=== PATIENT | male | born 1940 | race Caucasian/White ===

== ENCOUNTER 2017-04-28 21:47 | Outpatient (CLI) | payer MEDICARE | END 2017-04-28 21:48 | disposition home or self-care (01) | LOC: MADLAB 21:47 | PROVIDERS: ATTEND General Practice | DX: C61 Malignant neoplasm of prostate (principal) | CPT/HCPCS: G0103 ==

== ENCOUNTER 2017-05-25 17:53 | Outpatient (CLI) | payer MEDICARE | END 2017-05-25 17:54 | disposition home or self-care (01) | LOC: MADLAB 17:53 | PROVIDERS: ATTEND General Practice | DX: N39.0 Urinary tract infection, site not specified (principal) | CPT/HCPCS: 87077; 87086; 87186 ==

== ENCOUNTER 2018-03-04 20:00 | Emergency (ER) | payer MEDICARE ==
--- NOTE | 2018-03-04 20:52 | RAD ---
PORTABLE UPRIGHT FRONTAL CHEST RADIOGRAPH: 03/04/2018 HISTORY: Dyspnea. COMPARISON: None. FINDINGS: There is elevation of the right hemidiaphragm. There is no pneumothorax or pleural fluid. No focal consolidation or alveolar edema. There is mild perihilar interstitial prominence. IMPRESSION: No acute findings. POS: [facility]
[2018-03-04 21:20] LABS: Bilirubin Negative (Negative); Blood, Urine Large (Negative); Clarity Turbid (Clear); Glucose, Urine (Dipstick) 250 mg/dL (Negative); Leukocyte Large (Negative); Nitrite Negative (Negative); Protein, Urine (Dipstick) 100 mg/dL (Neg-Trace)
[2018-03-04 21:24] LABS: ALT (SGPT) 128 U/L (8-55); AST (SGOT) 55 U/L (5-34); Albumin 3.2 g/dL (3.4-4.8); Alkaline Phosphatase 208 U/L (40-150); Anion Gap 16 mmol/L (10-20); BUN (Urea Nitrogen) 32 mg/dL (8.4-25.7); Bilirubin, Total 1.4 mg/dL (0.2-1.2); Calc. Creatinine Clearance 0 mL/min (70-130); Calcium 8.1 mg/dL (7.8-10.44); Carbon Dioxide 28 mmol/L (23-31); Chloride 88 mmol/L (98-107); Estimated GFR-MDRD 58; Globulin 3.1 g/dL (2.4-3.5); Glucose 315 mg/dL (83-110); Magnesium 1.6 mg/dL (1.6-2.6); Potassium 3.4 mmol/L (3.5-5.1); Protein, Total 6.3 g/dL (5.8-8.1); Sodium 129 mmol/L (136-145)
[2018-03-04 21:30] LABS: Bacteria/HPF 4+ HPF (None Seen); RBC/HPF GREATER THAN 50-TNTC HPF (0-3)
[2018-03-04 21:31] LABS: CKMB 2.8 ng/mL (0-6.6); Hemoglobin 14.1 g/dL (14.0-18.0); Mean Corpuscular HGB CONC 32.5 g/dL (32.0-36.0); Mean Corpuscular Hemoglobin 24.9 pg (27.0-31.0); Mean Corpuscular Volume 76.6 fl (80.0-94.0); Mean Platelet Volume 12.2 fL (7.4-10.4); Platelet Count 108 thou/uL (130-400); RBC Distribution Width 14.9 % (11.5-14.5); Red Blood Cell (RBC) Count 5.68 mill/uL (4.70-6.10); Troponin I 0.059 ng/mL (< 0.028); White Blood Cell (WBC) Count 8.9 thou/uL (4.8-10.8)
[2018-03-04 21:34] LABS: MDiff Complete? YES
[2018-03-04 21:35] LABS: Anisocytosis MARKED = >30 cells (100X) (0-5/hpf); Band 10 % (5-11); Delete Auto Diff?? YES; Lymphocytes 12 % (21-51); Metamyelocyte 2 % (0-0); Microcytosis MARKED = >30 cells (100X) (0-5/hpf); Monocytes 2 % (0-10); Neutrophil 74 % (42-75)
[2018-03-04] MEDS ORDERED: Furosemide 20 MG/2 ML VIAL ONE (21:38)
== END 2018-03-04 21:55 | disposition short-term general hospital (02) ==
LOC: MADERS 20:00
DX: E87.70 Fluid overload, unspecified (principal); R09.02 Hypoxemia; I10 Essential (primary) hypertension; Z87.891 Personal history of nicotine dependence
CPT/HCPCS: 36415; 71045; 80053; 81003; 81015; 82553; 83735; 83880; 84443; 84484; 85025; 93005; 94760; 96374; J1940

== ENCOUNTER 2018-12-15 00:51 | Emergency (ER) | payer MEDICARE | END 2018-12-15 02:23 | disposition home or self-care (01) | LOC: MADERS 00:51 | DX: Z46.6 Encounter for fitting and adjustment of urinary device (principal); I10 Essential (primary) hypertension; Z87.891 Personal history of nicotine dependence | CPT/HCPCS: 51705 ==

== ENCOUNTER 2019-03-24 20:21 | Emergency (ER) | payer MEDICARE | END 2019-03-24 21:08 | disposition short-term general hospital (02) | LOC: MADERS 20:21 | DX: T83.198A Other mechanical complication of other urinary devices and implants, initial encounter (principal) | CPT/HCPCS: 99284 ==

== ENCOUNTER 2020-01-08 10:16 | Inpatient (IN) | payer MEDICARE ==
[2020-01-08 14:17] VITALS: BMI 36.6
[2020-01-08] MEDS ORDERED: Ondansetron ODT 4 MG TAB PO PRN (14:57)
[2020-01-08] MEDS ORDERED: Acetaminophen 325 MG TAB PO PRN (14:57)
[2020-01-08] MEDS ORDERED: Ascorbic Acid 500 mg Chewable Tablet PO PRN (14:59)
[2020-01-08] MEDS ORDERED: Zinc Gluconate 50 MG TAB PO PRN (15:13)
[2020-01-08] MEDS ORDERED: VIT C PO PRN (15:15)
[2020-01-08] MEDS ORDERED: Floranex Packet PO PRN (15:15)
[2020-01-08] MEDS ORDERED: CRANBERRY FRUIT EXTRACT PO PRN (15:15)
[2020-01-08 15:47] LABS: Bilirubin Negative (Negative); Blood, Urine Moderate (Negative); Clarity Slightly Cloudy (Clear); Glucose, Urine (Dipstick) Negative (Negative); Leukocyte Moderate (Negative); Nitrite Negative (Negative); Protein, Urine (Dipstick) Negative (Neg-Trace); Urobilinogen 0.2 mg/dL (Less than 2)
[2020-01-08] MEDS: Cefepime 1 GM in Sodium Chloride 0.9% 100 ML IVPB SCH (15:48)
[2020-01-08 15:51] LABS: ALT (SGPT) 306 U/L (8-55); AST (SGOT) 177 U/L (5-34); Albumin 3.7 g/dL (3.4-4.8); Alkaline Phosphatase 309 U/L (40-110); Anion Gap 13 mmol/L (10-20); BUN (Urea Nitrogen) 8 mg/dL (8.4-25.7); Bilirubin, Total 1.8 mg/dL (0.2-1.2); Calc. Creatinine Clearance 130 mL/min (70-130); Calcium 8.8 mg/dL (7.8-10.44); Carbon Dioxide 31 mmol/L (23-31); Chloride 100 mmol/L (98-107); Estimated GFR-MDRD Greater than 90; Globulin 3.6 g/dL (2.4-3.5); Glucose 170 mg/dL (83-110); Potassium 3.6 mmol/L (3.5-5.1); Protein, Total 7.3 g/dL (5.8-8.1); Sodium 140 mmol/L (136-145)
[2020-01-08 15:55] LABS: RBC/HPF Greater than 50 HPF (0-3); Squamous Epithelial None Seen HPF (0-3); WBC/HPF Greater Than 50 HPF (0-3)
[2020-01-08 15:56] LABS: Bacteria/HPF 4+ HPF (None Seen)
[2020-01-08 16:17] LABS: #Basophils 0.1 thou/uL (0.0-0.2); #Eosinphils 0.3 thou/uL (0.0-0.7); #Lymphocytes 1.4 thou/uL (1.20-3.40); #Monocytes 0.6 thou/uL (0.11-0.59); #Neutrophils 3.8 thou/uL (1.40-6.50); %Eosinophils 5.1 % (0.0-10.0); %Lymphocytes 23.4 % (21.0-51.0); %Monocytes 9.6 % (0.0-10.0); %Neutrophils 60.9 % (42.0-75.0); Anisocytosis SLIGHT = 6-15 cells (100X) (0-5/hpf); Hemoglobin 13.6 g/dL (14.0-18.0); Hypochromia MODERATE=16-30 cells (100X) (0-5/hpf); MDiff Complete? YES; Mean Corpuscular HGB CONC 29.8 g/dL (32.0-36.0); Mean Corpuscular Hemoglobin 24.9 pg (27.0-31.0); Mean Corpuscular Volume 83.6 fL (78.0-98.0); Platelet Count 140 thou/uL (130-400); Platelet Morphology Comment Appears Adequate; RBC Distribution Width 14.6 % (11.5-14.5); Red Blood Cell (RBC) Count 5.46 mill/uL (4.70-6.10); White Blood Cell (WBC) Count 6.2 thou/uL (4.8-10.8)
[2020-01-08] MEDS: Potassium Chloride 20 MEQ TAB PO SCH (16:56)
[2020-01-08] MEDS: Furosemide 40 MG TAB PO SCH (20:38)
[2020-01-08] MEDS: Oxybutynin 5 MG TAB PO SCH (20:38)
[2020-01-08] MEDS ORDERED: Cefepime 1 GM in Sodium Chloride 0.9% 100 ML IVPB SCH (21:00)
[2020-01-09] MEDS: Cefepime 1 GM in Sodium Chloride 0.9% 100 ML IVPB SCH ×2 (03:55→16:05)
[2020-01-09 05:47] LABS: ALT (SGPT) 255 U/L (8-55); AST (SGOT) 132 U/L (5-34); Albumin 3.6 g/dL (3.4-4.8); Alkaline Phosphatase 285 U/L (40-110); Anion Gap 14 mmol/L (10-20); BUN (Urea Nitrogen) 9 mg/dL (8.4-25.7); Bilirubin, Total 1.3 mg/dL (0.2-1.2); Calc. Creatinine Clearance 164 mL/min (70-130); Calcium 8.7 mg/dL (7.8-10.44); Carbon Dioxide 30 mmol/L (23-31); Chloride 101 mmol/L (98-107); Estimated GFR-MDRD Greater than 90; Globulin 3.5 g/dL (2.4-3.5); Glucose 101 mg/dL (83-110); Potassium 3.4 mmol/L (3.5-5.1); Protein, Total 7.1 g/dL (5.8-8.1); Sodium 142 mmol/L (136-145)
--- NOTE | 2020-01-09 06:58 | HP ---
PRIMARY CARE PHYSICIAN: Maura Azar MD CHIEF COMPLAINT: Multi-drug resistant urinary tract infection and worsening weakness. HISTORY OF PRESENT ILLNESS: Mr. Carreon is a 79-year-old male with medical history of quadriplegia due to a C-spine injury about 12 years ago where the patient fell and broke his C-spine and had to have surgery, since then, the patient is being wheelchair bound. The patient does have a history of prostate cancer, requiring radiation therapy and resulted in chronic indwelling suprapubic catheter. He has a history of diabetes and hypertension, and he is chronically cared for by his , his daughter and home health. The patient states he was in his home; and noted he was progressively getting weaker than normal, and home health nurse noted pus in catheter and very dark urine in his Rush catheter. UA was done on and culture which came back positive for Pseudomonas aeruginosa and susceptibility only IV. The patient denies any fever. He denies any nausea or vomiting. He just noted he was weaker than normal. The urine culture showed no oral antibiotic could be used to treat the current infection. [facility] noted due to the current pandemic of COVID-19, they could not go in for daily IV antibiotic administration. So, the decision was made to admit the patient in the hospital for IV antibiotics. On January 05, the patient had his Rush catheter changed, and a repeat UA was done, which also showed positive nitrites, positive leukocyte, and multiple bacteria with culture pending. Decision was made to admit the patient as he was felt to continue to have weakness and lethargy. Upon admission of patient, another UA was done and decision was made to start the patient on cefepime IV b.i.d., while we await our own urine culture here in facility. The patient denied any chest pain. He denies any nausea, vomiting, or diarrhea. Denies any abdominal pain. The patient states he has had urinary tract infections before and the last time was about 2 to 3 years ago. PAST MEDICAL HISTORY: Diabetes, type 2; quadriplegia, C1 through C4, incomplete ; chronic suprapubic catheter; hypertension; obesity; chronic pain; prostate cancer, requiring radiation therapy. PAST SURGICAL HISTORY: C-spine surgery, suprapubic catheter placement, tonsillectomy, cataractectomy, herniorrhaphy. FAMILY HISTORY: Mother at the age of 22. The patient's father at the age of 44 of cancer. SOCIAL HISTORY: The patient is . He quit smoking over 50 years ago. He has no alcohol use. He lives with his and his daughter. His is his surrogate decision maker. ALLERGIES: ALBUTEROL, METFORMIN. MEDICATIONS: 1. Floranex 1 g daily p.r.n. 2. Tylenol 650 q.4 p.r.n. 3. Doxazosin 4 mg daily. 4. Lasix 40 b.i.d. 5. Glimepiride 4 daily. 6. Melatonin 9 mg at bedtime p.r.n. 7. Oxybutynin 5 mg b.i.d. 8. K-Dur 20 mEq b.i.d. 9. Tramadol 50 q.6 p.r.n. 10. Zinc gluconate 50 daily p.r.n. REVIEW OF SYSTEMS: GENERAL: The patient complains of generalized weakness. HEENT: The patient denies any chest pain. RESPIRATORY: Denies shortness of breath, cough, or runny nose. GASTROINTESTINAL: Denies abdominal pain, nausea, or vomiting. GENITOURINARY: The patient does have a suprapubic catheter. Complains of dark smelly urine. EXTREMITIES: The patient complains of mild swelling chronically to bilateral lower extremities. NEUROLOGIC: The patient denies any confusion. The patient complains of gait instability and imbalance. PSYCHIATRY: The patient denies any depression or hallucination. PHYSICAL EXAMINATION: VITAL SIGNS: Temperature 96.8, pulse 54, respirations 18, O2 saturation 95% on room air, and blood pressure 124/62. GENERAL: The patient is alert, awake, and oriented x3. Lying comfortably in bed, in no apparent distress. The patient is very pleasant and conversational. HEENT: PERRL. No lesions in mucous membranes. Moist mucous membranes. NECK: Supple. No JVD. CARDIOVASCULAR: Regular rate and rhythm. S1 and S2. No murmurs. LUNGS: Clear to auscultation bilaterally. No wheezing. No rhonchi. ABDOMEN: Positive bowel sounds. Nontender and nondistended. No masses. No organomegaly. There is a suprapubic catheter in place, surrounding looks good. EXTREMITIES: Revealed +1 pitting bilateral edema up to the level of the knee. Shiny, chronic venous stasis. ASSESSMENT AND PLAN: The patient is a 79-year-old male with chronic suprapubic catheter, paraplegia, who is currently being admitted due to worsening weakness and multi-drug resistant urinary tract infection. The patient will be admitted to the medical floor. We will order stat CBC, CMP, UA, and urine culture. We will start the patient on cefepime 1 g b.i.d. until urine culture is received , and we can switch to possible p.o. medication if possible. We will continue all patient's home medications. We will consult Physical Therapy and Occupational Therapy to assist with activities of daily living, gait, strengthening and balance. We will do Accu-Cheks just fasting. We will replace electrolytes as needed. We will monitor the patient for any hemodynamic instability. Job ID: [id number] MTDD
[2020-01-09] MEDS: traMADol HCl 50 MG TAB PO PRN ×2 (07:22→21:06)
[2020-01-09] MEDS: Oxybutynin 5 MG TAB PO SCH ×2 (08:08→21:06)
[2020-01-09] MEDS: Doxazosin 2 MG TAB PO SCH (08:09)
[2020-01-09] MEDS: Furosemide 40 MG TAB PO SCH ×2 (08:09→21:06)
[2020-01-09] MEDS: Potassium Chloride 20 MEQ TAB PO SCH ×2 (08:09→17:08)
[2020-01-09] MEDS: Glimepiride 2 MG TAB PO SCH (08:09)
[2020-01-09] MEDS: Melatonin 3 MG TAB PO PRN (22:09)
[2020-01-10] MEDS: Cefepime 1 GM in Sodium Chloride 0.9% 100 ML IVPB SCH ×2 (04:16→15:55)
[2020-01-10] MEDS: Glimepiride 2 MG TAB PO SCH (07:43)
[2020-01-10] MEDS: Potassium Chloride 20 MEQ TAB PO SCH ×2 (08:29→16:47)
[2020-01-10] MEDS: Doxazosin 2 MG TAB PO SCH (08:29)
[2020-01-10] MEDS: Furosemide 40 MG TAB PO SCH ×2 (08:29→21:02)
[2020-01-10] MEDS: Oxybutynin 5 MG TAB PO SCH ×2 (08:29→21:02)
[2020-01-10] MEDS: traMADol HCl 50 MG TAB PO PRN ×2 (12:18→23:02)
[2020-01-10] MEDS ORDERED: Polyethylene Glycol 3350 17 GM Packet PO PRN (16:41)
[2020-01-10] MEDS: Melatonin 3 MG TAB PO PRN (23:02)
[2020-01-11] MEDS: Cefepime 1 GM in Sodium Chloride 0.9% 100 ML IVPB SCH (03:56)
[2020-01-11 05:54] LABS: ALT (SGPT) 196 U/L (8-55); AST (SGOT) 104 U/L (5-34); Albumin 3.6 g/dL (3.4-4.8); Alkaline Phosphatase 225 U/L (40-110); Anion Gap 12 mmol/L (10-20); BUN (Urea Nitrogen) 10 mg/dL (8.4-25.7); Bilirubin, Total 0.7 mg/dL (0.2-1.2); Calc. Creatinine Clearance 154 mL/min (70-130); Calcium 8.9 mg/dL (7.8-10.44); Carbon Dioxide 33 mmol/L (23-31); Chloride 100 mmol/L (98-107); Estimated GFR-MDRD Greater than 90; Globulin 3.4 g/dL (2.4-3.5); Glucose 139 mg/dL (83-110); Potassium 3.8 mmol/L (3.5-5.1); Sodium 141 mmol/L (136-145)
[2020-01-11 06:33] VITALS: BP 104/58; TEMP 97.8
[2020-01-11] MEDS: Glimepiride 2 MG TAB PO SCH (08:01)
[2020-01-11] MEDS: Potassium Chloride 20 MEQ TAB PO SCH (08:01)
[2020-01-11] MEDS: Doxazosin 2 MG TAB PO SCH (08:01)
[2020-01-11] MEDS: Oxybutynin 5 MG TAB PO SCH (08:01)
[2020-01-11] MEDS: Furosemide 40 MG TAB PO SCH (08:01)
--- NOTE | 2020-01-13 05:39 | PQF ---
[employer] Sales Consult[employer] Boo Velasquez MAURA ROBLES [id number] CLINICAL DOCUMENTATION CLARIFICATION FORM: POST DISCHARGE Addendum to original discharge summary date: ____ Late entry note date: __ DATE: 01/13/2020 ATTN: Maura Vogt Please exercise your independent, professional judgment in responding to the clarification form. Clinical indicators are provided on the bottom of this form for your review Please check appropriate box(s): [ x ] UTI is associated with chronic indwelling suprapubic catheter [ ] UTI is not associated with chronic indwelling suprapubic catheter [ ] Other diagnosis [ ] Unable to determine In addition, please specify: Present on Admission (POA): [ x ] Yes [ ] No [ ] Unable to determine CLINICAL INDICATORS - SIGNS / SYMPTOMS / LABS Patient does have a history of prostate cancer, requiring radiation therapy and resulted in chronic indwelling suprapubic catheter - H and P dated 01/07 by Maura Vogt Patient with chronic suprapubic catheter, paraplegia who is currently admitted due to worsening weakness and multi-drug resistant urinary tract infection - H and P dated 01/07 by Maura Vogt RISK FACTORS History of prostate cancer - H and P dated 01/07 by Maura Vogt Quadriplegia - H and P dated 01/07 by Maura Vogt TREATMENT: IV Cefepime from 01/07 to 01/11 - Medications IV fluids 01/07 to 01/10 - Medications (This form is maintained as a part of the permanent medical record) 2014 [employer]. All Rights Reserved J Luis [email or web address]
== END 2020-01-11 10:02 | disposition swing bed (61) | DRG 698 ==
LOC: MADMS 12:57
PROVIDERS: ADMIT Family Medicine; ATTEND Family Medicine
DX: T83.511A Infection and inflammatory reaction due to indwelling urethral catheter, initial encounter (principal); G82.50 Quadriplegia, unspecified; Z16.30 Resistance to unspecified antimicrobial drugs; N39.0 Urinary tract infection, site not specified; I10 Essential (primary) hypertension; E11.9 Type 2 diabetes mellitus without complications; E66.9 Obesity, unspecified; G89.29 Other chronic pain; R53.1 Weakness; Y84.6 Urinary catheterization as the cause of abnormal reaction of the patient, or of later complication, without mention of misadventure at the time of the procedure; Z99.3 Dependence on wheelchair; Z85.46 Personal history of malignant neoplasm of prostate; Z92.3 Personal history of irradiation; Z88.8 Allergy status to other drugs, medicaments and biological substances; Z68.36 Body mass index [BMI] 36.0-36.9, adult
CPT/HCPCS: 36415; 36416; 80053; 81001; 85025; 87077; 87086; 87186; J0692; J3490

== ENCOUNTER 2020-01-11 10:02 | Inpatient (IN) | payer MEDICARE ==
[2020-01-11 10:26] VITALS: BMI 36.6
[2020-01-11] MEDS ORDERED: Acetaminophen 325 MG TAB PO PRN (10:41)
[2020-01-11] MEDS ORDERED: Zinc Sulfate 220 MG CAP PO PRN (10:41)
[2020-01-11] MEDS ORDERED: Polyethylene Glycol 3350 17 GM Packet PO PRN (10:42)
[2020-01-11] MEDS ORDERED: Ondansetron ODT 4 MG TAB PO PRN (10:42)
[2020-01-11] MEDS ORDERED: Ascorbic Acid 500 mg Chewable Tablet PO PRN (10:44)
[2020-01-11] MEDS ORDERED: Floranex Packet PO PRN (10:45)
[2020-01-11] MEDS: Cefepime 1 GM in Sodium Chloride 0.9% 100 ML IVPB SCH (15:51)
[2020-01-11] MEDS: Potassium Chloride 20 MEQ TAB PO SCH (16:33)
[2020-01-11] MEDS: Furosemide 40 MG TAB PO SCH (20:05)
[2020-01-11] MEDS: Oxybutynin 5 MG TAB PO SCH (20:05)
[2020-01-11] MEDS: Melatonin 3 MG TAB PO PRN (22:09)
[2020-01-11] MEDS: traMADol HCl 50 MG TAB PO PRN (22:10)
[2020-01-12] MEDS: Cefepime 1 GM in Sodium Chloride 0.9% 100 ML IVPB SCH ×2 (04:26→15:56)
[2020-01-12] MEDS: Potassium Chloride 20 MEQ TAB PO SCH ×2 (07:45→16:29)
[2020-01-12] MEDS: Glimepiride 2 MG TAB PO SCH (07:45)
[2020-01-12] MEDS: Doxazosin 2 MG TAB PO SCH (07:45)
[2020-01-12] MEDS: Oxybutynin 5 MG TAB PO SCH ×2 (07:45→21:35)
[2020-01-12] MEDS: Furosemide 40 MG TAB PO SCH ×2 (07:45→21:35)
[2020-01-12] MEDS ORDERED: Bisacodyl 5 MG TAB PO PRN (10:10)
[2020-01-12] MEDS: Melatonin 3 MG TAB PO PRN (22:39)
[2020-01-13] MEDS: Cefepime 1 GM in Sodium Chloride 0.9% 100 ML IVPB SCH ×2 (03:55→16:02)
[2020-01-13] MEDS: Potassium Chloride 20 MEQ TAB PO SCH ×2 (08:01→17:54)
[2020-01-13] MEDS: Glimepiride 2 MG TAB PO SCH (08:01)
[2020-01-13] MEDS: Oxybutynin 5 MG TAB PO SCH ×2 (08:02→21:10)
[2020-01-13] MEDS: Furosemide 40 MG TAB PO SCH ×2 (08:02→13:24)
[2020-01-13] MEDS: traMADol HCl 50 MG TAB PO PRN ×2 (08:02→22:06)
[2020-01-13] MEDS: Doxazosin 2 MG TAB PO SCH (08:02)
[2020-01-13] MEDS: Melatonin 3 MG TAB PO PRN (22:06)
[2020-01-14] MEDS: Cefepime 1 GM in Sodium Chloride 0.9% 100 ML IVPB SCH ×2 (03:55→16:01)
[2020-01-14 05:56] LABS: ALT (SGPT) 121 U/L (8-55); AST (SGOT) 44 U/L (5-34); Albumin 3.7 g/dL (3.4-4.8); Alkaline Phosphatase 216 U/L (40-110); Anion Gap 14 mmol/L (10-20); BUN (Urea Nitrogen) 15 mg/dL (8.4-25.7); Bilirubin, Total 0.6 mg/dL (0.2-1.2); Calc. Creatinine Clearance 161 mL/min (70-130); Carbon Dioxide 31 mmol/L (23-31); Chloride 102 mmol/L (98-107); Estimated GFR-MDRD Greater than 90; Globulin 3.3 g/dL (2.4-3.5); Glucose 110 mg/dL (83-110); Potassium 3.8 mmol/L (3.5-5.1); Sodium 143 mmol/L (136-145)
[2020-01-14] MEDS: Glimepiride 2 MG TAB PO SCH (08:23)
[2020-01-14] MEDS: Potassium Chloride 20 MEQ TAB PO SCH ×2 (08:24→16:02)
[2020-01-14] MEDS: Furosemide 40 MG TAB PO SCH ×2 (08:24→14:02)
[2020-01-14] MEDS: Doxazosin 2 MG TAB PO SCH (08:24)
[2020-01-14] MEDS: Oxybutynin 5 MG TAB PO SCH ×2 (08:24→20:52)
[2020-01-14 12:44] LABS: HBCM Index 0.06 S/CO (0-0.79); HBSAg Index 0.22 S/CO (0-0.99); Hep A IgM AB Non-Reactive (NonReactive); Hep A IgM S/CO 0.13 S/CO (0-0.79); Hep B Surf Ag Non-Reactive S/CO (NonReactive); Hep C IgG Ab Non-Reactive (NonReactive); Hep C Index 0.22 S/CO (0-0.79); Hepatitis B Core IgM Abs Non-Reactive (NonReactive)
[2020-01-14] MEDS: traMADol HCl 50 MG TAB PO PRN (22:47)
[2020-01-14] MEDS: Melatonin 3 MG TAB PO PRN (22:47)
[2020-01-15] MEDS: Cefepime 1 GM in Sodium Chloride 0.9% 100 ML IVPB SCH (04:18)
[2020-01-15 06:37] VITALS: BP 137/72; TEMP 97.8
[2020-01-15] MEDS: Doxazosin 2 MG TAB PO SCH (08:27)
[2020-01-15] MEDS: Furosemide 40 MG TAB PO SCH (08:28)
[2020-01-15] MEDS: Glimepiride 2 MG TAB PO SCH (08:28)
[2020-01-15] MEDS: Oxybutynin 5 MG TAB PO SCH (08:29)
[2020-01-15] MEDS: Potassium Chloride 20 MEQ TAB PO SCH (08:29)
--- NOTE | 2020-01-16 11:49 | DIS ---
DATE OF ADMISSION: 01/11/2020 DATE OF DISCHARGE: 01/15/2020 ADMITTING/DISCHARGING PHYSICIAN: Maura Azar MD DISCHARGE DISPOSITION: Back to his home. DISCHARGE INSTRUCTIONS: 1. [facility] to start nursing care. 2. Physical therapy and occupational therapy. 3. Home health to assist with suprapubic catheter change monthly. 4. The patient to follow up with PCP in 1 week. 5. PCP to repeat liver enzymes in 1 month. DISCHARGE MEDICATIONS: 1. Floranex 1 g daily p.r.n. 2. Doxazosin 4 mg daily. 3. Lasix 40 b.i.d. 4. Glimepiride 4 daily. 5. Melatonin 9 mg at bedtime. 6. Oxybutynin 5 mg b.i.d. 7. K-Dur 20 mEq b.i.d. 8. Tramadol 50 q.6 p.r.n. 9. Zinc gluconate 50 p.r.n. 10. Tylenol 650 p.r.n. q.4. 11. MiraLAX 1 packet daily p.r.n. DISCHARGE DIAGNOSES: 1. Multidrug-resistant urinary tract infection, resolved. 2. Physical deconditioning, improving. 3. Gait instability, improving. 4. Constipation, resolved. 5. enzymes, improving. BRIEF HOSPITAL COURSE: Mr. Cheng is a 79-year-old male who has a history of quadriplegia, wheelchair-bound due to an injury 12 years ago, history of suprapubic catheter due to prostate cancer requiring radiation therapy, hypertension, obesity, chronic pain. The patient had notified his home health nurse. He was getting progressively weak and she noted his catheter had some pus-like particles in it and was very dark. A UA was done. Catheter was changed and urine culture grew Pseudomonas aeruginosa with susceptibility to only IV antibiotics. The patient was subsequently admitted for IV antibiotic and generalized weakness. He was treated with a 7-day course of IV cefepime b.i.d. The patient had a repeat urine culture prior to starting antibiotic and these grew 3 bacteria, E coli, Pseudomonas aeruginosa and presumptive Proteus mirabilis and also susceptible to cefepime, so the patient was continued on this antibiotic throughout the stay. The patient was also evaluated by physical therapist and he was able to participate in physical therapy throughout hospitalization. He was noted to be very weak and he made some progress, but per physical therapist recommendation the patient continued to be fatigued and would need continuation of therapy as an outpatient. The patient requested to continue therapy at home instead of in facility and the patient completed IV antibiotic today the and was subsequently discharged back home to his family. He was told he would need to continue physical therapy and he also was in a 4-wheeled walker, which he states was much better than the one he had at home. The patient was discharged back home in stable condition. DISCHARGE VITAL SIGNS: Temperature 97.8, pulse 75, respirations 18, blood pressure 137/72, O2 saturation 94% on room air. Job ID: [id number] MTDD
== END 2020-01-15 13:43 | disposition home health service (06) | DRG 689 ==
LOC: MADMS 10:02
PROVIDERS: ADMIT Family Medicine; ATTEND Family Medicine
DX: N39.0 Urinary tract infection, site not specified (principal); G82.50 Quadriplegia, unspecified; Z16.24 Resistance to multiple antibiotics; R53.81 Other malaise; R26.9 Unspecified abnormalities of gait and mobility; K59.00 Constipation, unspecified; C61 Malignant neoplasm of prostate; I10 Essential (primary) hypertension; E66.9 Obesity, unspecified; G89.29 Other chronic pain; B96.5 Pseudomonas (aeruginosa) (mallei) (pseudomallei) as the cause of diseases classified elsewhere; Z99.3 Dependence on wheelchair; Z68.36 Body mass index [BMI] 36.0-36.9, adult
CPT/HCPCS: 36415; 36416; 80053; 80074; J0692; J3490

== ENCOUNTER 2022-03-03 20:44 | Emergency (ER) | payer MEDICARE | END 2022-03-03 23:55 | disposition home or self-care (01) | LOC: MADERS 20:44 | DX: T83.018A Breakdown (mechanical) of other urinary catheter, initial encounter (principal); Z85.46 Personal history of malignant neoplasm of prostate; I10 Essential (primary) hypertension; Z79.899 Other long term (current) drug therapy; Z79.84 Long term (current) use of oral hypoglycemic drugs | CPT/HCPCS: 51702 ==

== ENCOUNTER 2025-06-30 13:58 | Emergency (ER) | payer MEDICARE ==
[2025-06-30 15:05] LABS: #Basophils 0.1 thou/uL (0.0-0.2); #Eosinophils 0.2 thou/uL (0.0-0.7); #Lymphocytes 1.7 thou/uL (1.20-3.40); #Monocytes 0.6 thou/uL (0.11-0.59); #Neutrophils 5.6 thou/uL (1.40-6.50); %Basophils 0.9 % (0.0-1.0); %Eosinophils 2.7 % (0.0-10.0); %Lymphocytes 21.1 % (21.0-51.0); %Monocytes 7.4 % (0.0-10.0); %Neutrophils 67.9 % (42.0-75.0); Anisocytosis SLIGHT = 6-15 cells (100X) (0-5/hpf); Hematocrit 53.0 % (42.0-52.0); Hemoglobin 16.0 g/dL (14.0-18.0); MDiff Complete? YES; Mean Corpuscular Hemoglobin 24.9 pg (27.0-31.0); Mean Corpuscular Volume 82.3 fl (78.0-98.0); Platelet Adequacy Comment Appears Adequate; Platelet Count 190 10x3/uL (130-400); Red Blood Cell (RBC) Count 6.44 mill/uL (4.70-6.10); White Blood Cell (WBC) Count 8.2 10x3/uL (4.8-10.8)
[2025-06-30 15:09] LABS: ALT (SGPT) 17 U/L (Less than 45); AST (SGOT) 18 U/L (11-34); Albumin 3.9 g/dL (3.1-4.5); Alkaline Phosphatase 122 U/L (40-110); Anion Gap 17 mmol/L (10-20); BUN (Urea Nitrogen) 12 mg/dL (8.4-25.7); Bilirubin, Total 0.7 mg/dL (0.3-1.2); Calc. Creatinine Clearance 0 mL/min (70-130); Calcium 9.1 mg/dL (7.8-10.44); Carbon Dioxide 25 mmol/L (23-31); Chloride 102 mmol/L (98-107); Globulin 4.1 g/dL (2.4-3.5); Glucose 210 mg/dL (83-110); Magnesium 1.7 mg/dL (1.6-2.6); Potassium 3.8 mmol/L (3.5-5.1); Sodium 140 mmol/L (136-145)
[2025-06-30 15:10] LABS: Troponin I 0.027 ng/mL (< 0.028)
[2025-06-30 15:29] LABS: Lipase Less than 4 U/L (8-78)
[2025-06-30] MEDS ORDERED: cefTRIAXone (ROCEPHIN) 2 GM VIAL ONE (16:17)
[2025-06-30 17:23] LABS: Glucose, Urine (Dipstick) Negative (Negative); Leukocyte Large (Negative); Protein, Urine (Dipstick) 30 mg/dL (Neg-Trace); Specific Gravity, Urine 1.015 (1.005-1.030)
[2025-06-30 17:31] LABS: CAUTI Indications for Culture Alt mental st,lethar; WBC/HPF Greater Than 50 HPF (0-3)
[2025-06-30 17:32] LABS: Bacteria/HPF 4+ HPF (None Seen)
[2025-06-30 17:34] LABS: Urine Culture Reflex Yes Yes
[2025-06-30] MEDS ORDERED: Ibuprofen 600 MG TAB ONE (20:19)
== END 2025-06-30 21:55 | disposition short-term general hospital (02) ==
LOC: MADERS 13:58
DX: N39.0 Urinary tract infection, site not specified (principal); R53.1 Weakness; I10 Essential (primary) hypertension; E11.9 Type 2 diabetes mellitus without complications; Z87.891 Personal history of nicotine dependence; Z79.899 Other long term (current) drug therapy; Z79.85 Long-term (current) use of injectable non-insulin antidiabetic drugs
CPT/HCPCS: 36415; 80053; 81001; 83605; 83690; 83735; 83880; 84484; 85025; 87040; 87077; 87086; 87186; 93005; 94760; 96365; 96366; 96367; J0696; J3373; J7030

== ENCOUNTER 2025-07-04 14:08 | Inpatient (IN) | payer MEDICARE ==
[2025-07-04] MEDS ORDERED: Acetaminophen/Codeine 30-300mg Tablet PO PRN (20:52)
[2025-07-04] MEDS ORDERED: Melatonin 3 MG TAB PO PRN (20:52)
[2025-07-04] MEDS: FLU (Fluad Triv) 25-26 (65UP)PF 45 MCG/0.5 ML Syringe IM ONE (22:40)
[2025-07-05] MEDS: Lantiseptic Ointment 130 GM JAR TOP SCH (09:22)
[2025-07-05] MEDS: glipiZIDE 5 MG TAB PO SCH (09:22)
[2025-07-05] MEDS: Furosemide 40 MG TAB PO SCH (09:23)
[2025-07-05] MEDS: Multivit, Therapeutic 1 TAB PO SCH (09:23)
[2025-07-05] MEDS: Aspirin Chewable 81 MG TAB PO SCH (09:23)
[2025-07-05] MEDS: Sulfameth/Trimethoprim DS 800-160mg TAB PO SCH (09:38)
[2025-07-05] MEDS: Acetaminophen 500 MG TAB PO PRN (09:45)
[2025-07-10] MEDS: Acetaminophen 325 MG TAB PO PRN (08:34)
[2025-07-12] MEDS: Cyclobenzaprine 10 MG TAB PO PRN (09:43)
[2025-07-13] MEDS: Oxybutynin 5 MG TAB PO PRN (00:33)
[2025-07-13] MEDS: Oxybutynin 5 MG TAB PO SCH (08:55)
[2025-07-23] MEDS: Oxybutynin 5 MG TAB PO SCH (21:04)
[2025-07-30 00:01] VITALS: BMI 33.7
[2025-07-30] MEDS: Furosemide 40 MG TAB PO SCH (08:29)
[2025-08-03] MEDS: Guaifenesin DM 100-10/5 ML UDCUP PO PRN (15:52)
[2025-08-06] MEDS: guaiFENesin/DM ER PO SCH ×2 (10:36→20:45)
[2025-08-06 11:53] LABS: Glucose, Urine (Dipstick) Negative (Negative); Leukocyte Moderate (Negative); Protein, Urine (Dipstick) 100 mg/dL (Neg-Trace); Specific Gravity, Urine 1.020 (1.005-1.030)
[2025-08-06 11:59] LABS: Bacteria/HPF 4+ HPF (None Seen); CAUTI Indications for Culture Dysuria,urgency,freq; RBC/HPF 0-3 HPF (0-3); WBC/HPF 21-50 HPF (0-3)
[2025-08-06 12:01] LABS: Urine Culture Reflex Yes Yes
[2025-08-07 10:22] VITALS: BMI 33.1
[2025-08-08] MEDS: Cephalexin 500 MG CAP PO SCH (10:53)
[2025-08-08] MEDS: Benzonatate 100 MG CAP PO SCH (10:54)
[2025-08-11] MEDS: Guaifenesin DM 100-10/5 ML UDCUP PO PRN (02:53)
[2025-08-13 07:24] VITALS: BP 125/74; TEMP 97.7
[2025-08-13 18:31] LABS: Anion Gap 17 mmol/L (10-20); BUN (Urea Nitrogen) 11 mg/dL (8.4-25.7); Calc. Creatinine Clearance 156 mL/min (70-130); Calcium 9.4 mg/dL (7.8-10.44); Carbon Dioxide 30 mmol/L (23-31); Chloride 98 mmol/L (98-107); Glucose 148 mg/dL (83-110); Potassium 4.6 mmol/L (3.5-5.1); Sodium 140 mmol/L (136-145)
== END 2025-08-13 16:45 | DRG 945 ==
LOC: MADMS 14:08 → UNDOADMIN 20:07 → MADMS 20:07
PROVIDERS: ADMIT Family Medicine; ATTEND Family Medicine
PROC: F07Z9ZZ Gait Training/Functional Ambulation Treatment (ICD-10-PCS; principal; 2025-07-04)
DX: R53.1 Weakness (principal); N39.0 Urinary tract infection, site not specified; E11.9 Type 2 diabetes mellitus without complications; E78.5 Hyperlipidemia, unspecified; D64.9 Anemia, unspecified; R53.81 Other malaise; E66.9 Obesity, unspecified; G47.00 Insomnia, unspecified; G89.29 Other chronic pain; Z98.890 Other specified postprocedural states; Z88.8 Allergy status to other drugs, medicaments and biological substances; Z85.46 Personal history of malignant neoplasm of prostate; Z98.49 Cataract extraction status, unspecified eye; Z87.891 Personal history of nicotine dependence; Z93.59 Other cystostomy status; Z68.33 Body mass index [BMI] 33.0-33.9, adult; Z79.899 Other long term (current) drug therapy; Z79.82 Long term (current) use of aspirin; Z79.890 Hormone replacement therapy; Z79.2 Long term (current) use of antibiotics; L89.159 Pressure ulcer of sacral region, unspecified stage
CPT/HCPCS: 36416; 71045; 80048; 81001; 87077; 87086; 87186; 90653; 36415-59

== ENCOUNTER 2025-09-03 00:08 | Emergency (ER) | payer MEDICARE ==
[2025-09-03 00:32] LABS: CAUTI Indications for Culture Dysuria,urgency,freq; Glucose, Urine (Dipstick) 250 mg/dL (Negative); Leukocyte Large (Negative); Protein, Urine (Dipstick) > or equal to 300 mg/dL (Neg-Trace); RBC/HPF Greater than 50 HPF (0-3); Specific Gravity, Urine 1.025 (1.005-1.030); WBC/HPF Greater than 50 HPF (0-3)
[2025-09-03 00:33] LABS: Bacteria/HPF 2+ HPF (None Seen); Urine Culture Reflex Yes Yes
== END 2025-09-03 01:23 | disposition home or self-care (01) ==
LOC: MADERS 00:08
DX: T83.090A Other mechanical complication of cystostomy catheter, initial encounter (principal); N39.0 Urinary tract infection, site not specified; E11.9 Type 2 diabetes mellitus without complications; Z87.891 Personal history of nicotine dependence
CPT/HCPCS: 51705; 81001; 87077; 87086; 87186; 99283